=== PATIENT | female | born 1975 | race African-American/Black ===

== ENCOUNTER 2021-03-31 10:51 | Emergency (ER) | payer OTHER ==
[~2021-03-31] VITALS: Ht 160 cm; Wt 91.0 kg
[2021-03-31] MEDS ORDERED: ACETAMINOPHEN 325MG TABLET PO ONE (17:15)
[2021-03-31] MEDS ORDERED: AMOXICILLIN/POTASSIUM CLAVULANATE 875/125MG TAB PO NR (18:15)
[2021-03-31] MEDS ORDERED: SODIUM CHLORIDE 0.9% 1,000 ML IV NR (18:15)
[2021-03-31] MEDS ORDERED: AZITHROMYCIN 500 MG TABLET PO NR (18:15)
[2021-03-31 19:53] LABS: BASOPHILS % 0.7 % (0.0-2.0); LYMPHOCYTES % 15.5 % (20.0-50.0); MEAN CORPUSCULAR HEMOGLOBIN 16.2 pg (28.0-32.0); MEAN CORPUSCULAR VOLUME 56.2 fL (81.0-99.0); MEAN PLATELET VOLUME 9.6 fl (7.4-10.4); MONOCYTES % 9.4 % (2.0-8.0); NEUTROPHILS % 74.4 % (40.0-76.0); PLATELET 160 x1000/uL (130-400); RED BLOOD CELL COUNT 3.54 mill/uL (4.2-5.4); RED CELL DISTRIBUTION WIDTH 20.1 % (11.6-14.6)
[2021-03-31 20:01] LABS: CHLORIDE 103 mEq/L (98-107)
[2021-03-31 20:24] LABS: HEMOGLOBIN. 5.7 g/dL (12.0-16.0)
[2021-03-31 20:26] LABS: HEMATOCRIT. 19.9 % (36.0-48.0)
[2021-03-31 20:30] LABS: HCG SCREEN NEGATIVE
[2021-03-31 21:12] LABS: PLATELET ESTIMATE NORMAL
[2021-04-01] MEDS ORDERED: FERR325T23 MT (02:04)
[2021-04-01] MEDS ORDERED: ACETAMINOPHEN 325MG TABLET PO ONE (03:45)
[2021-04-01 04:29] VITALS: BP 131/71
== END 2021-04-01 05:02 | disposition home or self-care (01) ==
LOC: ER 10:51
DX: U07.1 COVID-19 (principal); D64.9 Anemia, unspecified; E11.9 Type 2 diabetes mellitus without complications; Z98.890 Other specified postprocedural states
CPT/HCPCS: 36415; 71045; 80053; 84484; 84703; 85025; 86850; 86900; 86901; 86920; 87426; 93005; 96360; 99291; C9803; U0003; U0005; Z7610; P9016